=== PATIENT | male | born 1960 | race Caucasian/White ===

== ENCOUNTER 2017-05-11 13:23 | Emergency (ER) | payer OTHER ==
[~2017-05-11] VITALS: Ht 175.3 cm; Wt 81.6 kg
[2017-05-11 14:15] VITALS: BP 135/89
[2017-05-11] MEDS ORDERED: cefTRIAXone SOD 1,000 MG VL ONE (14:57)
[2017-05-11] MEDS ORDERED: cefTRIAXone W LIDOCAINE 1 GM IM IM ONE (15:00)
[2017-05-11 15:05] LABS: Urine Bilirubin Negative (Negative); Urine Blood 2+ /uL (Negative); Urine Color Yellow (Yellow); Urine Glucose Normal (Normal); Urine Ketone TRACE (Negative); Urine Nitrite Negative (Negative); Urine RBC 124 /hpf (0 - 3); Urine Urobilinogen Normal (Negative)
== END 2017-05-11 15:28 | disposition home or self-care (01) ==
LOC: EDBD 13:23 → ER 13:23
DX: R33.9 Retention of urine, unspecified (principal)
CPT/HCPCS: 51702; 81001; 96372; 99284; J0696